=== PATIENT | female | born 1945 | race Two or more races ===

== ENCOUNTER 2016-05-14 19:24 | Inpatient (IN) | payer MEDICARE, MEDICAID ==
[~2016-05-14] VITALS: Ht 152.4 cm; Wt 59.4 kg
[~2016-05-14 19:24] MED LIST: FELO2.5T8 PO; ONDA-54 PO; SENN-133 PO; SITA25TA5 PO
[2016-05-14 19:40] VITALS: BP 102/63; PULSE 93; RESP 16; O2SAT 98
[2016-05-14] MEDS ORDERED: 0.9% Sodium Chloride 1,000 ML IV ONE (20:13)
--- NOTE | 2016-05-14 20:13 | ED.REPORT ---
HPI-GI Bleed Date of Service May 14, 2016 ED Provider: Harrison Rogers MD The patient is a 71 year old female with history of diabetes mellitus, hypertension, and lung cancer, who presents to the emergency department complaining of vague lower abdominal pain that radiates to the right lower quadrant that began 2 days ago. Yesterday the patient had several episodes of nausea and vomiting. Yesterday she also noticed difficulty having a bowel movement and when she was able to defecate she noticed small hard balls of stools. She noticed severe pain with passing the hard balls of stool. Starting yesterday evening she started having loose stools and this has continued throughout today. Her last two bowel movements today she noticed blood in the toilet and on the toilet paper. She recently finished her radiation and chemotherapy and has an upcoming appointment with her oncologist. Dr. Torres. She is not on any blood thinners. She denies any history of inflammatory bowel disease or colonic malignancy. Nursing Notes Stated Complaint: BLOODY DIARRHEA Chief Complaint: Female Abdominal Pain Nursing Notes Reviewed: Yes Allergies: Coded Allergies: No Known Allergies (Unverified , 07/29/15) Scheduled Atorvastatin (Lipitor) 20 Mg Tablet 20 MG PO HS Ca Carb & Gluc/Mag Ox & Gluc (Calcium Magnesium Caplet) 1 Each Tablet 1 TABLET PO DAILY Felodipine ER (Felodipine ER) 2.5 Mg Tab.er.24h 2.5 MG PO DAILY Ginkgo Biloba (Ginkgo Biloba) 60 Mg Capsule 60 MG PO BID Guaifenesin (Guaifenesin ER) 600 Mg Tab.er.12h 600 MG PO DAILY Sitagliptin Phos (Januvia) 25 Mg Tablet 25 MG PO DAILY Scheduled PRN Acetaminophen (Acetaminophen) 325 Mg Tablet 325-650 MG PO Q4H PRN PRN For Fever General Time Seen by Provider: 20:28 Chief Complaint Chief Complaint: Abdominal pain Hx Obtained From: Patient, Other family... Arrived By: Walk-in Onset Occurred: 2 days ago Symptom Duration: Since onset Progression Since Onset: Constant, Gradually worsening Location: : Suprapubic Quality: Painful Radiation: : RLQ Severity: Current: Moderate Severity: Maximum: Moderate Recent Healthcare: No recent doctor visit, No recent hospitalization Similar Sx Previous: No Past Medical History Past Medical History Notes: Oncologist: Dr. Kojouri Past Medical History Lung Cancer, recently diagnosed Reports: Diabetes mellitus, Hypertension Family History Noncontributory Smoking History Former Smoker Social History Other Social History: Good social support, Local resident Ambulatory Status Independent Review of Systems GI: Reports: Abdominal pain, Constipation, Diarrhea, Hematochezia, Nausea, Rectal pain, Vomiting Complete sys rev & neg: except as marked. Physical Exam Initial Vital Signs Vital Signs (First) Date Time Temp Pulse Resp B/P Pulse Ox O2 Delivery O2 Flow Rate FiO2 05/14/16 19:40 37.8 93 16 102/63 98 Room Air Initial VS: Reviewed Head / Eyes: Atraumatic, Normocephalic, PERRL Neck: Supple, Non-tender, Full range of motion Lymphatic: No lymphadenopathy Extremities: Vascular intact, Neuro intact, No swelling, No tenderness Skin: Warm, Dry, No cyanosis Neurologic: Alert, Oriented, Nonfocal Psychiatric: Mood/affect normal, Behavior normal, Normal thought content General/Constitutional: Awake, Alert, Cooperative Respiratory / Chest: Atraumatic, Breath sounds NL, Breath sounds = bilat, No respiratory distress, No rales, No rhonchi, No wheezing Cardiovascular: Heart rate NL, Regular rhythm, Heart sounds NL, No murmurs, Cap refill not delayed, Peripheral circulation NL Abdomen: Soft, No guarding, No rebound, BS normoactive, No distention, No hernia, No palpable mass, No pulsatile mass Tenderness/Guarding/Rebound: Positive: Tender diffuse Rectum / Perineum: Atraumatic Rectum / Perineum Abnl: Positive: Fissure present (no active bleeding) Rectal exam reveals bright red blood mixed with clotted blood and stool in the rectal vault. There are some non-bleeding hemorrhoids. ENT: Airway patent Mouth: Positive: Mucous membranes dry Wrist / Hand: Neurologic intact, Vascular intact Clubbed appearance of fingernails. Interpretation & Diagnostics Lab Results Interpretation Result Diagram: 05/14/16 2030 05/14/16 2030 Test 05/14/16 20:30 05/14/16 21:10 05/14/16 22:13 05/14/16 22:17 White Blood Count 15.5th/mm3 (3.8-10.1) Red Blood Count 4.36mil/mm3 (3.90-5.20) Hemoglobin 12.4g/dL (12.0-15.6) Hematocrit 36.8% (35.0-46.0) Mean Corpuscular Volume 84.4fL (81-100) Mean Corpuscular Hemoglobin 28.4pg (27.0-35.0) Mean Corpuscular Hemoglobin Concent 33.7% (32.0-37.0) Red Cell Distribution Width 14.9% (12.3-15.4) Platelet Count 139bil/L (150-400) Neutrophils (%) (Auto) 77.7% (40-74) Lymphocytes (%) (Auto) 13.4% (14-46) Monocytes (%) (Auto) 8.1% (4-12) Eosinophils (%) (Auto) 0.1% (0-5) Basophils (%) (Auto) 0.1% (0-3) Sodium Level 134mEq/L (134-144) Potassium Level 4.6mEq/L (3.5-5.2) Chloride Level 97mEq/L (97-108) Carbon Dioxide Level 23mmol/L (18-29) Blood Urea Nitrogen 14mg/dL (8-27) Creatinine 0.78mg/dL (0.57-1.00) Estimat Glomerular Filtration Rate 104mL/min (>59) Glucose Level 142mg/dL (60-99) Calcium Level 9.1mg/dL (8.5-10.1) Total Bilirubin 0.8mg/dL (0.0-1.2) Aspartate Amino Transf (AST/SGOT) 24U/L (0-50) Alanine Aminotransferase (ALT/SGPT) 20U/L (0-32) Alkaline Phosphatase 59U/L (25-165) Total Protein 7.6g/dL (6.4-8.4) Albumin 3.8g/dL (3.4-5.0) Prothrombin Time 11.0sec (8.1-12.5) Prothromb Time International Ratio 1.03ratio Hold Laws Top Tube Received (Received) Urine Color Yellow (YELLOW) Urine Appearance Clear (CLEAR,HAZY) Urine pH 6.5 (5.0-8.0) Urine Specific [place] 1.005 (1.003-1.035) Urine Protein Negativemg/dL (NEG,TRACE) Urine Glucose (UA) Negativemg/dL (NEGATIVE) Urine Ketones Negativemg/dL (NEGATIVE) Urine Occult Blood Trace (NEGATIVE) Urine Nitrite Negative (NEGATIVE) Urine Bilirubin Negative (NEGATIVE) Urine Urobilinogen Normalmg/dL (NORMAL) Urine Leukocyte Esterase Trace (NEGATIVE) Urine RBC 0-2/hpf (0-2) Urine WBC 0-5/hpf (0-5) Urine Epithelial Cells Occasional/hpf (NONE-MOD) Urine Crystals None seen (NONE SEEN) Urine Bacteria None/hpf (NONE-FEW) Urine Hyaline Casts None/lpf (NONE) Urine Granular Casts None seen (NONE SEEN) Urine Waxy Casts None seen (NONE SEEN) Urine Red Blood Cell Casts None seen (NONE SEEN) Urine White Blood Cell Casts None seen (NONE SEEN) Urine Mucus None seen (None Seen) Urine Trichomonas None seen (NONE SEEN) Urine Yeast None (NONE SEEN) Urine Culture Reflexed Indicated Hold Urine Received (Received) CT Abd / Pelvis Interpretation Left-sided colitis with wall thickening near the splenic flexure Study type: Abdominal CT IV contrast Interpretation / Wet Read by: Interpret - Radiologist, Discussed w radiologist Re-Eval/Medical Decision Med Decision/Clinical Course The patient is a 71 year old female with history of diabetes mellitus, hypertension, and lung cancer, who presents to the emergency department complaining of vague lower abdominal pain that radiates to the right lower quadrant that began 2 days ago. Yesterday the patient had several episodes of nausea and vomiting. Yesterday she also noticed difficulty having a bowel movement and when she was able to defecate she noticed small hard balls of stools. She noticed severe pain with passing the hard balls of stool. Starting yesterday evening she started having loose stools and this has continued throughout today. Her last two bowel movements today she noticed blood in the toilet and on the toilet paper. She recently finished her radiation and chemotherapy and has an upcoming appointment with her oncologist. Dr. Torres. She is not on any blood thinners. She denies any history of inflammatory bowel disease or colonic malignancy. Here in the emergency department the patient is afebrile with stable vital signs though quite tender about the lower quadrants bilaterally. Patient was treated with IV fluids, Zofran for nausea and hydromorphone for pain. She reported subjective improvement. LABS: leukocytosis 15.5, hct 33.7 slightly down from 31.9 yesterday, CMP unremarkable, coag studies WNL. ABD CT: Left-sided colitis with wall thickening near the splenic flexure. Rectal examination reveals clotted bright red blood in the rectal vault, there is an anal fissure present but this does not appear to be the source of her bleeding. Called the patient's colitis is at this time unclear. She will be admitted for further workup and management in consultation with gastroenterology. Lactate has been added and consideration for ischemic process though infectious and inflammatory etiologies remain possible as well. She was transferred in stable condition. Source of Hx: Old records, Family Re-Evaluation/Progress : Time of Eval: 21:58 Re-Evaluation/Progress Note: Discussed plan with the patient and her daughter for admission. All questions were addressed. Consultation : Referral / Consult Name: Aretha William MD Consulted With: Hospitalist Employee Service Officer: Will see patient, Agrees with eval, Agrees with plan, Accepts admit Counseled Regarding: Diagnosis, Lab results, Need for admission Discharge & Departure Impression: Primary Impression: GI bleed GI bleed type/associated pathology: unspecified gastrointestinal hemorrhage type Qualified Code: K92.2 - Gastrointestinal hemorrhage, unspecified Additional Impressions: Colitis Abdominal pain Abdominal location: lower abdomen Qualified Code: R10.30 - Lower abdominal pain, unspecified History of lung cancer Leukocytosis Leukocytosis type: unspecified Qualified Code: D72.829 - Elevated white blood cell count, unspecified Nausea Diarrhea Disposition: ADMITTED TO HOSPITAL Discharge Condition All VS Reviewed: Yes Condition: Stable Referrals: Felicitas Springer MD (PCP) Darius Torres MD [facility] Attestation Portions of this note were transcribed by Sherie Wilson. I, Dr. Rogers personally performed the history, physical exam and medical decision-making; I reviewed and confirmed the accuracy of the information in the transcribed note. Signed by: Mildred Umana, 05/14/2016 and 2320. copies to: Darius Torres MD; Felicitas Springer MD, Beck O MD May 14, 2016 20:13 Sherie Wilson May 14, 2016 20:30
[2016-05-14] MEDS ORDERED: Ondansetron 2 mg/mL 2 mL Inj IVPUSH ONE (20:15)
[2016-05-14 20:50] LABS: BASOPHILS % (AUTO) 0.1 % (0-3); EOSINOPHILS % (AUTO) 0.1 % (0-5); MONOCYTES % (AUTO) 8.1 % (4-12); Mean Corpuscular Hemoglobin 28.4 pg (27.0-35.0); Mean Corpuscular Volume 84.4 fL (81-100); NEUTROPHILS % (AUTO) 77.7 % (40-74); Platelet Count 139 bil/L (150-400)
[2016-05-14 21:37] LABS: INR 1.03 ratio
[2016-05-14] MEDS ORDERED: HYDROmorphone 0.5 mg/0.5 mL iSecure Syringe IVPUSH PRN (22:05)
[2016-05-14 22:13] VITALS: BP 122/62; PULSE 79; RESP 17; O2SAT 97
[2016-05-14] MEDS ORDERED: ATOR20TA PO (22:24)
[2016-05-14] MEDS ORDERED: CA C1TAB86 PO (22:27)
[2016-05-14] MEDS ORDERED: GINK60CA PO (22:27)
[2016-05-14] MEDS ORDERED: GUAI600T86 PO (22:27)
[2016-05-14] MEDS ORDERED: ACET325T51 PO (22:28)
[2016-05-14 23:19] LABS: APPEARANCE,URINE CLEAR (CLEAR,HAZY); COLOR,URINE YELLOW (YELLOW); OCCULT BLOOD,URINE TRACE (NEGATIVE); PH,URINE 6.5 (5.0-8.0); UROBILINOGEN,URINE NORMAL (NORMAL)
[2016-05-14 23:24] VITALS: BP 104/62; PULSE 79; RESP 15; O2SAT 97
[2016-05-14] MEDS ORDERED: Ondansetron 2 mg/mL 2 mL Inj IVPUSH PRN (23:30)
[2016-05-15] VITALS (7 sets, daily range): BP systolic 97–113; BP diastolic 50–83; PULSE 58–93; RESP 16–18; O2SAT 91–96
[2016-05-15] MEDS ORDERED: PEG/Electrolytes 4,000 mL Solution PO ONE (00:20)
[2016-05-15] MEDS ORDERED: guaiFENesin 600 mg ER12 Tablet PO PRN (00:20)
[2016-05-15] MEDS: 0.9% Sodium Chloride 1,000 ML IV SCH ×2 (00:56→15:19)
[2016-05-15] MEDS ORDERED: metroNIDAZOLE Inj 500 MG in IV Premix 1 EACH IV SCH (01:00)
[2016-05-15] MEDS ORDERED: levoFLOXacin Inj 500 MG in IV Premix 1 EACH IV SCH (01:00)
[2016-05-15] MEDS ORDERED: Sodium Chloride NAS 45 mL Spray NASAL PRN (01:55)
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
--- NOTE | 2016-05-15 06:37 | NUR ---
admit to floor from ED Suprapubic pain rated 7-8 on initial assessment. Now down to 3-4 this morning. No nausea, tolerating clear liq's. Started on Colyte prep and has drank 3500ml but is fatigued and wanting to sleep. Stools are liq dark red - sample sent to lab. Care continues.
--- NOTE | 2016-05-15 07:59 | DRSVH ---
PROCEDURE: CT ABDOMEN AND PELVIS WITH CONTRAST ([id number]) INDICATIONS: abd pain, rectal bleeding TECHNIQUE: After the administration of intravenous contrast, 5 mm thick sections acquired from the diaphragm to the symphysis. 5 mm coronal and sagittal reformats were acquired. For radiation dose reduction, the following was used: automated exposure control, adjustment of mA and/or kV according to patient siz e. COMPARISON: Outside Film, CT, CT ANGIO CHEST, 07/11/2015, 11:23. FINDINGS: Image quality: Excellent. ABDOMEN: Lung bases: Small left pleural effusion. Bibasilar scattered scarring/atelectasis. 4-5 mm partially v isualized pulmonary nodule image one series 4 in the right lung base, which is unchanged since 07/11/15 Solid organs: Liver and spleen are normal in size and enhancement. Probable hepatic cyst in the far lateral segment image 12. Gallbladder unremarkable. Biliary system is non dilated. Pancreas enhanc es normally. No adrenal nodules. Kidneys demonstrate normal size and enhancement, without hydroneph rosis. Presumed bilateral subcentimeter renal cysts although too small to characterize definitively. Peritoneum and bowel: Long segment diffuse descending and distal transverse colonic wall thickening, with adjacent fat stranding. Appendix technically not visualized although no suspicious right lower quadrant inflammatory changes. No abscess free fluid or bowel obstruction. No free air identified. Sc attered air-fluid levels in the right lower quadrant. There is a small right posterior hernia noted t ip of the right iliac crest, this contains the lateral wall of the cecum and a mild amount of fluid. No associated bowel obstruction. The rectum is partially decompressed therefore unremarkable Nodes and vessels: No retroperitoneal or mesenteric adenopathy by size criteria. Aorta and inferior vena cava are normal in size. Swirling appearance of mesenteric vessels in the right abdomen, altho ugh no definite evidence of obstruction Miscellaneous: No ventral hernias. Bilateral granulomas or nodularity seen in the anterolateral abd ominal subcutaneous fat, nonspecific and recommend clinical correlation. PELVIS: Genitourinary: Bladder wall thickness is normal. Miscellaneous: No inguinal hernias or adenopathy. Bones: Chronic fracture deformities involving the right hemipelvis. No suspicious bony lesions. No vertebral body compression fractures. IMPRESSION: Long segment left colonic wall thickening with adjacent inflammatory fat stranding, this statisticall y represents infectious/inflammatory colitis. Ischemic colitis should also be considered as a less li risa entity in the differential. Small right posterolateral pelvic hernia containing lateral wall of the cecum, and mild fluid, howeve r no associated bowel obstruction. Small left pleural effusion. Dictated by: Nadir Dahl M.D. on 05/15/2016 at 7:47 Approved by: Nadir Dahl M.D. on 05/15/2016 at 7:57
[2016-05-15] MEDS ORDERED: MAG OX PO SCH (08:30)
[2016-05-15] MEDS ORDERED: CA CARB PO SCH (08:30)
[2016-05-15] MEDS ORDERED: GLUC PO SCH (08:30)
[2016-05-15] MEDS: guaiFENesin 600 mg ER12 Tablet PO SCH ×2 (08:30→08:38)
[2016-05-15] MEDS ORDERED: [UNRECOGNIZED DRUG - OTHER] PO SCH (08:30)
[2016-05-15] MEDS ORDERED: Influenza (Adult) Vaccine 0.5 mL Syringe IM ONE (08:30)
[2016-05-15] MEDS: Insulin Human REGular 300 Unit/3 mL Inj SUBQ SCH ×3 (08:30→20:30)
[2016-05-15] MEDS: Fluticasone 0.05% 15 Spray/2 Gm 16 Gm Nasal Spray NASAL SCH ×2 (08:38→20:56)
--- NOTE | 2016-05-15 09:35 | NUR ---
Evaluation completed. Please go to "Notes" then click on "Assessments and Notes" (bottom left corner of screen). Then select appropriate discipline tab on top of screen.
--- NOTE | 2016-05-15 11:50 | NUR ---
Social Work: Initial Assessment Data & Assessment: See Initial Assessment. EMR Reviewed. Patient is a 71 y/o female that admitted on 05/14/16 with GI bleed per H&P. finish repair worker met with patient to discuss discharge plan, SW role reviewed, and initial assessment complete. Patient's insurance is Medicare and [facility] secondary. Patient's PCP is Dr. Felicitas Springer. Patient does not have VA or LTC benefits. Patient reports that she does have an Advance Directive and her daughter will bring in a copy. Patient reports that her DPOA is her daughter, joyce Quinteros. Patient is independent at baseline and has a walker and SC. Patient lives in a one story home with her daughter and there is three steps to enter. Patient does not drive. Patient has had [facility] in the past and has never been to SNF. Patient does not have any current discharge plans and states that if HH is needed she would choose [facility]. SW will continue to follow and assist patient throughout stay. Plan: Patient is likely to discharge home no needs via POV. SW will continue to follow and assist patient throughout stay. bob Jimenez LMSW, ELIZABETH Addendum: 05/15/16 at 1206 by BOB JIMENEZ Amended: Links added.
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
--- NOTE | 2016-05-15 17:57 | NUR ---
Pain Pt reports pain at a 4/10 intermittently. Denies offer of pain medication several times this shift. Bed down and locked, call light w/in reach
--- NOTE | 2016-05-15 20:58 | NUR ---
MARIA D explained and signed. Copy of MARIA D and Medicare self administered medication information given to pt.
[2016-05-16] MEDS: 0.9% Sodium Chloride 1,000 ML IV SCH ×3 (01:20→14:11)
[2016-05-16] MEDS: Insulin Human REGular 300 Unit/3 mL Inj SUBQ SCH ×4 (02:30→20:23)
[2016-05-16 03:34] LABS: BASOPHILS % (AUTO) 0.3 % (0-3); EOSINOPHILS % (AUTO) 1.8 % (0-5); MONOCYTES % (AUTO) 7.7 % (4-12); Mean Corpuscular Hemoglobin 27.7 pg (27.0-35.0); Mean Corpuscular Volume 85.9 fL (81-100); NEUTROPHILS % (AUTO) 71.6 % (40-74); Platelet Count 116 bil/L (150-400)
--- NOTE | 2016-05-16 04:06 | NUR ---
GI liq stool during night without visible blood. Reports decreasing abdominal pain at rest. No request for pain meds this shift. Stable, care ongoing.
[2016-05-16 04:42] LABS: Phosphorus 2.3 mg/dL (2.5-4.9)
[2016-05-16 05:37] VITALS: BP 85/50; PULSE 64; RESP 16; O2SAT 94
[2016-05-16 05:58] VITALS: BP 92/57; PULSE 71; RESP 16; O2SAT 95
[2016-05-16] MEDS: guaiFENesin 600 mg ER12 Tablet PO SCH (08:16)
[2016-05-16] MEDS: Fluticasone 0.05% 15 Spray/2 Gm 16 Gm Nasal Spray NASAL SCH ×2 (08:16→20:09)
[2016-05-16] MEDS ORDERED: 0.9% Sodium Chloride 1,000 ML IV ONE ×2 (10:10→10:25)
[2016-05-16 10:23] VITALS: BP 86/55; PULSE 60
--- NOTE | 2016-05-16 10:35 | NUR ---
Hypotensive Pt bp prior to shift change was 92/57 Held Amlodipine dose and rechecked at approx 1000 BP 86/55 Spoke w/ hospitalist NS Bolus ordered and running non-admin amlodipine Pt asymptomatic. Bed down and locked call light w/in reach
[2016-05-16 13:50] VITALS: BP 110/67; PULSE 61; RESP 18; O2SAT 92
--- NOTE | 2016-05-16 15:48 | PCM.PNMED ---
Subjective Date of Service May 16, 2016 Subjective Patient was seen and examined at bedside today. Patient denies any chest pain, shortness of breath, vomiting, diarrhea. Patient reports nausea, abdominal pain, dizziness, left ear pain. Exam Vital Signs Vital Sign - Last Date Time Temp Pulse Resp B/P Pulse Ox O2 Delivery O2 Flow Rate FiO2 05/16/16 13:50 36.5 61 18 110/67 92 Room Air Intake and Output 05/15/16 05/15/16 05/16/16 Cumulative From/Thru 15:00 23:00 07:00 05/14/16 19:40 - 05/16/16 06:00 Intake Total 1165 ml 1550 ml 4376 ml Output Total 1400 ml 900 ml 2300 ml Balance -235 ml 650 ml 2076 ml Intake Oral 537 ml 300 ml 1037 ml IV Total 628 ml 1250 ml 3339 ml Output Urine Total 1400 ml 1400 ml Urine/Stool Mix 900 ml 900 ml # Bowel Movements 0 7 Exam Physical Exam: GEN: Patient was awake, alert, responding appropriately to questions HEENT: PERRLA, EOMI, Neck soft supple, trachea midline, nomocephalic/atraumatic , left tympanic membrane clear, no erythema CV: +S1/S2, RRR, no murmur auscultated Respiratory: CTAB, no wheezes, rales, rhonchi GI: +bowel sounds x4, soft, compressible, TTP EXT: no c/c/e Neuro: CN II-XII grossly intact Psych: mood and affect were appropriate IVs and Medications Medications Reviewed: Medications were reviewed in detail Lab and Diagnostics Result Diagram: 05/16/16 1503 05/16/16 0309 Assessment & Plan 71-year-old female with history of lung cancer, diabetes mellitus, and hypertension who presented to the emergency department with lower abdominal pain , nausea, vomiting, and bright red blood per rectum. Bright red blood per rectum, present on admission, active - Dr. Keita of GI consulted from the ED patient was started on GoLYTELY bowel prep however patient's H&H remained stable and colonoscopy is not indicated at this time. - Serial H&H every 6 hours have been currently stable Hypotension (most likely secondary to volume depletion) -Patient currently not tolerating diet -Decreased patient back down to clear liquids -IV bolus of normal saline 1 -Continue normal saline at 100 mils per hour Gastroenteritis secondary to Escherichia coli, present on admission, acute - Patient with 2 day history of nausea, vomiting, and diarrhea - Stool PCR positive for Escherichia coli enteropathogenic Epec - Normal saline 100 mL per hour -Continue fluid and electrolyte management -Levofloxacin and Flagyl were discontinued yesterday - Original lactic acid 2.0, repeat 1.4 - Zofran when necessary for nausea and vomiting Abdominal pain, present on admission, acute - Likely secondary to above, patient with rebound tenderness on exam. Patient has a remote history of appendectomy - Pain control with IV morphine and Tylenol - GI consultation as above Positional vertigo, present on admission, acute - Patient describes room spinning upon turning head to the left or right - Differential diagnosis includes BPPV, toxicity from chemotherapy, dehydration - Physical therapy evaluation for Wan maneuver ordered Diabetes mellitus type II, present on admission, stable - Non-insulin using, patient on Januvia and diet control - Hemoglobin A1c 6.6, all recorded blood sugars since July 2015 have been less than 160. - Continue to hold Januvia patient's blood sugars have been relatively controlled, this may also be another cause for the patient's dizziness - Low-dose correctional insulin per protocol Possible changing CODE STATUS, acute - Previous POLST stating resuscitation without prolonged life support filled out 8 months ago - Upon questioning patient stated that she did not want any of it however it was approximately 1 in the morning and patient had just received narcotic medication. - She is currently stable, palliative care has consulted in the past however has not had a goals of care conversation - Palliative care consult ordered for goals of care conversation with patient and family. Chronic conditions: Nasopharyngeal mucus production - Continue Mucinex, saline and fluticasone nasal spray ordered Hypertension, well controlled - Continue felodipine 2.5 mg ER every 24 Acetaminophen for mild pain when necessary. Bowel regimen Senna and MiraLAX PRN. Zofran when necessary for nausea and vomiting. DVT prophylaxis: SCDs, pharmacologic prophylaxis contraindicated at this time due to GI bleed CODE STATUS: Patient is full code at this time Disposition: Patient is still not tolerating a diet and is in need of IV hydration as well as IV antibiotics as the patient is not tolerating anything by mouth at this time. GI Prophylaxis: Not indicated VTE Mechanical Devices: Intermittant Pneumatic CD Resuscitation Status: CPR: Attempt Resuscitation Time spent Greater than 35 minutes Amanda Luther DO May 16, 2016 15:48
--- NOTE | 2016-05-16 19:02 | NUR ---
Inpatient status effective today, MICHAEL signed.
[2016-05-16 19:56] VITALS: BP 112/71; PULSE 67; RESP 20; O2SAT 94
--- NOTE | 2016-05-16 22:55 | PCM.PNMED ---
Subjective Date of Service May 16, 2016 Subjective pt seen this morning around 9am she was ambulating in the room she stated after starting diet yesterday abdominal pain worsened diarrhe improved and non bloody Exam Vital Signs Vital Sign - Last Date Time Temp Pulse Resp B/P Pulse Ox O2 Delivery O2 Flow Rate FiO2 05/16/16 19:56 37.5 67 20 112/71 94 Room Air Intake and Output 05/15/16 05/15/16 05/16/16 Cumulative From/Thru 15:00 23:00 07:00 05/14/16 19:40 - 05/16/16 06:00 Intake Total 1165 ml 1550 ml 4376 ml Output Total 1400 ml 900 ml 2300 ml Balance -235 ml 650 ml 2076 ml Intake Oral 537 ml 300 ml 1037 ml IV Total 628 ml 1250 ml 3339 ml Output Urine Total 1400 ml 1400 ml Urine/Stool Mix 900 ml 900 ml # Bowel Movements 0 7 Exam GEN- no apparent distress HEENT- o/p clear no icterus RESP- clear bilaterally CVS-RRR abdomen- diffuse mild tenderness, no rebound or guarding, bowel sounds present Lab and Diagnostics Result Diagram: 05/16/16202005/16/16 0309 Assessment & Plan 71-year-old female with history of lung cancer, diabetes mellitus, and hypertension who presented to the emergency department with lower abdominal pain , nausea, vomiting, and bright red blood per rectum. Gastroenteritis secondary to Escherichia coli,EPEC -continue IV fluids -clear liquid diet -if symptoms improved tomorrow could advance diet GI Prophylaxis: Not indicated VTE Mechanical Devices: Intermittant Pneumatic CD Resuscitation Status: CPR: Attempt Resuscitation Megan Keita MD May 16, 2016 22:54
[2016-05-17] MEDS: 0.9% Sodium Chloride 1,000 ML IV SCH (00:14)
[2016-05-17 02:55] LABS: Mean Corpuscular Hemoglobin 27.3 pg (27.0-35.0); Mean Corpuscular Volume 86.1 fL (81-100)
[2016-05-17] MEDS: Insulin Human REGular 300 Unit/3 mL Inj SUBQ SCH ×4 (03:00→20:30)
[2016-05-17 05:08] VITALS: BP 118/68; PULSE 64; RESP 18; O2SAT 95
--- NOTE | 2016-05-17 05:13 | NUR ---
Pain Continues to c/o abdominal pain but declines offer of pain medication through night, able to sleep. Tolerating clear liquid diet without increase in nausea. Hourly rounding ongoing.
[2016-05-17] MEDS: guaiFENesin 600 mg ER12 Tablet PO SCH (08:14)
--- NOTE | 2016-05-17 08:49 | NUR ---
Palliative Care Referral Cancelled05/17/16 This policy writer typist spoke with pt.'s attending provider, Dr. Luther, about whether Palliative Care consult is needed at this time. Pt. was admitted to [facility] on 05/14/16 due to GI bleed. Pt.'s condition is steadily improving. She is currently full-code, which is appropriate given her overall physical health. Dr. Luther is in agreement that pt. does not need palliative care involved at this time as goals are clear. PEPE Vega, [facility] Palliative Business Relations Manager
[2016-05-17] MEDS: Fluticasone 0.05% 15 Spray/2 Gm 16 Gm Nasal Spray NASAL SCH ×2 (09:41→21:58)
[2016-05-17 09:43] VITALS: BP 115/64; PULSE 71
--- NOTE | 2016-05-17 12:00 | PCM.PNMED ---
Subjective Date of Service May 17, 2016 Subjective GASTROENTEROLOGY PROGRESS NOTE Patient states mild nausea, no vomiting. Continues to endorse loose stools, and reports some blood noted within toilet bowel and on toilet paper. States diffuse abdominal pain at rest and with palpation, not worsened with meals at this time. Tolerating clears well, and had crackers without discomfort. Denies fever, chills, dysphagia. Able to ambulate well without assistance. States mild dizziness. Exam Vital Signs Vital Sign - Last Date Time Temp Pulse Resp B/P Pulse Ox O2 Delivery O2 Flow Rate FiO2 05/17/16 05:08 36.9 64 18 118/68 95 Room Air Intake and Output 05/16/16 05/16/16 05/17/16 Cumulative From/Thru 15:00 23:00 07:00 05/14/16 19:40 - 05/17/16 05:08 Intake Total 2407 ml 640 ml 7423 ml Output Total 900 ml 2000 ml 5200 ml Balance 1507 ml -1360 ml 2223 ml Intake Oral 720 ml 640 ml 2397 ml IV Total 1687 ml 5026 ml Output Urine Total 900 ml 2000 ml 4300 ml Urine/Stool Mix 900 ml # Bowel Movements 1 1 9 Exam General: Alert, Oriented X3, Cooperative, No Acute Distress Eyes: EOMI, Scleral Anicteric Nose: Mucous Membr Moist/[place] Mouth: Mucous Membr Moist/[place] Chest & Lungs: Auscultation (Clear bilaterally), No adventitious breath sounds Cardiovascular: Regular Rate/Rhythm, No Murmurs/Rubs/[place] Pulses: Radial (equal and bilateral) Abdomen: Tender (Mild; diffuse, notable periumbilical), Non-distended, Benign, Soft Musculoskeletal: Normal Range of Motion Extremities: No cyanosis/clubbing/edma bilat Neurological: Grossly Neurologically Intact, Cranial Nerves 2-12 Intact, Normal Speech (without slur) Lab and Diagnostics Result Diagram: 05/17/1622405/17/16224 Assessment & Plan GASTROENTEROLOGY CONSULTATION NOTE Ms. Zaman is a pleasant 71 year old woman with history of lung cancer, DM, and HTN that presented to [facility] 05/14 with a 2-day history of abdominal pain, nausea, and vomiting, and 1-day history of hematochezia. She was admitted for evaluation and treatment of suspected lower GI bleed. GI was consulted to assist in this evaluation. CT A/P w/con 05/14: Long segment left colonic wall thickening with adjacent inflammatory fat stranding, this statistically represents infectious/ inflammatory colitis. Ischemic colitis should also be considered as a less likely entity in the differential. Small right posterolateral pelvic hernia containing lateral wall of the cecum, and mild fluid, however no associated bowel obstruction. Small left pleural effusion. Stool PCR: + E.coli EPEC Assessments - Acute lower GI bleeding; resolved - Acute infectious colitis secondary to E.coli, EPEC variant - Abdominal pain with associated nausea; improving Plan - Advance diet as tolerated; if symptoms return, reduce back to clears - Continue to monitor H/H on daily basis; stable at this time - No plans colonoscopy at this time secondary to active infection - Recommendations include advancing diet as tolerated, with avoidance of dairy and high fiber for the next 48-72 hours as symptoms are still active to allow inflammation to subside - OK to DC home when patient is deemed stable, and can tolerate po well. DC per primary team based on stability of patient - No colonoscopy recommended at DC; most recent was reported to be approx one year prior to this admission - OK to DC per GI if symptoms improve, tolerating diet, and HH remains stable Thank you for this consult. No plans for further intervention at this time. If you have any additional questions or concerns, please do not hesitate to contact us. Total time: 40 minutes GI Prophylaxis: Not indicated VTE Mechanical Devices: Intermittant Pneumatic CD Resuscitation Status: CPR: Attempt Resuscitation Attending Statement pt seen and examined agree with resident physician note after starting regular diet she started experiencing abdominal pain she reports several episodes of blood tinged diarrhea. recommend change diet to clears, cont IV fluids and advance diet when abdominal pain improves. Katie Gutierrez DO May 17, 2016 08:49 Megan Keita MD May 17, 2016 22:49
[2016-05-17 13:35] VITALS: BP 118/54; PULSE 51; RESP 18; O2SAT 100
--- NOTE | 2016-05-17 15:29 | NUR ---
GI Pt c/o abd pain - cramping. Stating 4/10 pain, states pain but tolerable - refusing pain medication. BRP/BSC as needed - mucous diarrhea, minimal amounts at a time, light pink tinge. Serial H&H - no decline. Diet advanced from clears to soft - at lunch, pt slow to eat but tolerating. No emesis. Post eating, pt napped and then after waking, stating pain 3/10, tolerable. Care continues.
--- NOTE | 2016-05-17 15:39 | PCM.PNMED ---
Subjective Date of Service May 17, 2016 Subjective Patient was seen and examined at bedside today. Patient denies any chest pain, shortness of breath, nausea, vomiting, diarrhea. Patient states that she is tolerating her liquid diet and has not had any nausea or vomiting with eating yesterday. Patient also states that her left ear pain has also improved. Exam Vital Signs Vital Sign - Last Date Time Temp Pulse Resp B/P Pulse Ox O2 Delivery O2 Flow Rate FiO2 05/17/16 13:35 36.9 51 18 118/54 100 Room Air Intake and Output 05/16/16 05/16/16 05/17/16 Cumulative From/Thru 15:00 23:00 07:00 05/14/16 19:40 - 05/17/16 05:08 Intake Total 2407 ml 640 ml 7423 ml Output Total 900 ml 2000 ml 5200 ml Balance 1507 ml -1360 ml 2223 ml Intake Oral 720 ml 640 ml 2397 ml IV Total 1687 ml 5026 ml Output Urine Total 900 ml 2000 ml 4300 ml Urine/Stool Mix 900 ml # Bowel Movements 1 1 9 Exam Physical Exam: GEN: Patient was awake, alert, responding appropriately to questions HEENT: PERRLA, EOMI, Neck soft supple, trachea midline, nomocephalic/atraumatic CV: +S1/S2, RRR, no murmur auscultated Respiratory: CTAB, no wheezes, rales, rhonchi GI: +bowel sounds x4, soft, compressible, TTP EXT: no c/c/e Neuro: CN II-XII grossly intact Psych: mood and affect were appropriate IVs and Medications Medications Reviewed: Medications were reviewed in detail Lab and Diagnostics Result Diagram: 05/17/16 1413 05/17/16 0225 Assessment & Plan 71-year-old female with history of lung cancer, diabetes mellitus, and hypertension who presented to the emergency department with lower abdominal pain , nausea, vomiting, and bright red blood per rectum. Bright red blood per rectum, present on admission, (resolved) - Dr. Keita of GI consulted from the ED patient was started on GoLYTELY bowel prep however patient's H&H remained stable and colonoscopy is not indicated at this time. - Serial H&H every 6 hours have been currently stable Hypotension (most likely secondary to volume depletion resolved after IV hydration) -Patient currently tolerating clear liquid diet advance patient to soft mechanical diet -Discontinue IV fluids Hypernatremia (mild) -Sodium 146 -IV fluids were changed to half-normal saline and then discontinued -We will continue to monitor Gastroenteritis secondary to Escherichia coli, present on admission, acute - Patient with 2 day history of nausea, vomiting, and diarrhea - Stool PCR positive for Escherichia coli enteropathogenic Epec - Discontinue Normal saline 100 mL per hour -Continue fluid and electrolyte management -Levofloxacin and Flagyl were discontinued yesterday - Original lactic acid 2.0, repeat 1.4 - Zofran when necessary for nausea and vomiting Abdominal pain, present on admission, acute - Likely secondary to above, patient with rebound tenderness on exam. Patient has a remote history of appendectomy - Pain control with IV morphine and Tylenol - GI following Positional vertigo, present on admission, (resolving) - Patient describes room spinning upon turning head to the left or right - Differential diagnosis includes BPPV, toxicity from chemotherapy, dehydration - Physical therapy evaluation for Wan maneuver ordered Diabetes mellitus type II, present on admission, stable - Non-insulin using, patient on Januvia and diet control - Hemoglobin A1c 6.6, all recorded blood sugars since July 2015 have been less than 160. - Continue to hold Januvia patient's blood sugars have been relatively controlled, this may also be another cause for the patient's dizziness - Low-dose correctional insulin per protocol Possible changing CODE STATUS, acute - Previous POLST stating resuscitation without prolonged life support filled out 8 months ago - Upon questioning patient stated that she did not want any of it however it was approximately 1 in the morning and patient had just received narcotic medication. - She is currently stable, palliative care has consulted in the past however has not had a goals of care conversation - Palliative care consult ordered for goals of care conversation with patient and family. Chronic conditions: Nasopharyngeal mucus production - Continue Mucinex, saline and fluticasone nasal spray ordered Hypertension, well controlled - Continue felodipine 2.5 mg ER every 24 Acetaminophen for mild pain when necessary. Bowel regimen Senna and MiraLAX PRN. Zofran when necessary for nausea and vomiting. DVT prophylaxis: SCDs, pharmacologic prophylaxis contraindicated at this time due to GI bleed CODE STATUS: Patient is full code at this time Disposition: Patient tolerated a liquid diet today if the patient continues to tolerate diet she will be ready for discharge home tomorrow. GI Prophylaxis: Not indicated VTE Mechanical Devices: Intermittant Pneumatic CD Resuscitation Status: CPR: Attempt Resuscitation Time spent Greater than 35 minutes Amanda Luther DO May 17, 2016 15:39
--- NOTE | 2016-05-17 16:55 | NUR ---
spiritual care: routine conversational visit, pt shared updates and care from this medical concern and her larger experience of cancer treatment and home life. pt livign with dtr, reflected on adjustments required of her as she undergoes treatment. Hopeful tone, though pt reflected on being at peace with "whatever happens." pt's yazidism luis m very important to her. blessing
[2016-05-17 21:57] VITALS: BP 124/72; PULSE 74; RESP 16; O2SAT 98
[2016-05-17] MEDS: Alum-Mag Hydrox-Simeth 30 mL Suspension PO PRN (22:02)
[2016-05-18] MEDS: Insulin Human REGular 300 Unit/3 mL Inj SUBQ SCH ×3 (02:30→14:30)
--- NOTE | 2016-05-18 04:52 | NUR ---
Cramping reports GI pain/cramping- given maalox with relief, she states flatulence. No BM this shift, continue to monitor for signs of blood. Tolerated soft diet for dinner, noted orders for clear liquid diet in chart that will be followed 05/18 breakfast unless otherwise ordered. No chest pain, SOB, or other changes. Room air, no tele. Care continues
[2016-05-18 06:42] LABS: Mean Corpuscular Hemoglobin 27.6 pg (27.0-35.0); Mean Corpuscular Volume 85.2 fL (81-100)
[2016-05-18 06:53] VITALS: BP 104/64; PULSE 64; RESP 17; O2SAT 98
[2016-05-18] MEDS: guaiFENesin 600 mg ER12 Tablet PO SCH (08:24)
[2016-05-18] MEDS: Fluticasone 0.05% 15 Spray/2 Gm 16 Gm Nasal Spray NASAL SCH (08:25)
--- NOTE | 2016-05-18 10:55 | PCM.PNMED ---
Subjective Date of Service May 18, 2016 Subjective GASTROENTEROLOGY PROGRESS NOTE Patient states improvement in abdominal pain; tolerated soft diet well thus far. States frequent BM, but blood has not been evident. Denies nausea, vomiting , fever, chills. Would like to go home today to continue rest. Exam Vital Signs Vital Sign - Last Date Time Temp Pulse Resp B/P Pulse Ox O2 Delivery O2 Flow Rate FiO2 05/18/16 06:53 36.7 64 17 104/64 98 Room Air Intake and Output 05/17/16 05/17/16 05/18/16 Cumulative From/Thru 15:00 23:00 07:00 05/14/16 19:40 - 05/18/16 00:13 Intake Total 1561 ml 200 ml 9184 ml Output Total 100 ml 5300 ml Balance 1561 ml 100 ml 3884 ml Intake Oral 200 ml 2597 ml IV Total 1561 ml 6587 ml Output Urine Total 100 ml 4400 ml Urine/Stool Mix 900 ml # Bowel Movements 9 Exam General: Alert, Oriented X3, Cooperative, No Acute Distress Eyes: EOMI, Scleral Anicteric Nose: Mucous Membr Moist/[place] Mouth: Mucous Membr Moist/[place] Chest & Lungs: Auscultation (Clear bilaterally), No adventitious breath sounds Cardiovascular: Regular Rate/Rhythm, No Murmurs/Rubs/Gallops Pulses: Radial (equal and bilateral) Abdomen: Tender (Mild; diffuse, notable periumbilical), Non-distended, Benign, Soft Musculoskeletal: Normal Range of Motion Extremities: No cyanosis/clubbing/edma bilat Neurological: Grossly Neurologically Intact, Cranial Nerves 2-12 Intact, Normal Speech (without slur) Lab and Diagnostics Result Diagram: 05/18/1661305/18/16613 Assessment & Plan GASTROENTEROLOGY CONSULTATION NOTE Ms. Zaman is a pleasant 71 year old woman with history of lung cancer, DM, and HTN that presented to [facility] 05/14 with a 2-day history of abdominal pain, nausea, and vomiting, and 1-day history of hematochezia. She was admitted for evaluation and treatment of suspected lower GI bleed. GI was consulted to assist in this evaluation. CT A/P w/con 05/14: Long segment left colonic wall thickening with adjacent inflammatory fat stranding, this statistically represents infectious/ inflammatory colitis. Ischemic colitis should also be considered as a less likely entity in the differential. Small right posterolateral pelvic hernia containing lateral wall of the cecum, and mild fluid, however no associated bowel obstruction. Small left pleural effusion. Stool PCR: + E.coli EPEC Assessments - Acute lower GI bleeding; resolved - Acute infectious colitis secondary to E.coli, EPEC variant - Abdominal pain with associated nausea; improving Plan - Advance diet as tolerated; if symptoms return, reduce back to clears. This can be a recommendation for DC instructions as well. - No plans colonoscopy at this time secondary to active infection - Recommendations include advancing diet as tolerated, with avoidance of dairy and high fiber for the next 48-72 hours as symptoms are still active to allow inflammation to subside; this can be continued at DC with DC instructions - OK to DC home when patient is deemed stable, and can tolerate po well. DC per primary team based on stability of patient - No colonoscopy recommended at DC; most recent was reported to be approx one year prior to this admission - OK to DC per GI if symptoms improve, tolerating diet, and HH remains stable Thank you for this consult. No plans for further intervention at this time. If you have any additional questions or concerns, please do not hesitate to contact us. Total time: 30 minutes GI Prophylaxis: Not indicated VTE Mechanical Devices: Intermittant Pneumatic CD Resuscitation Status: CPR: Attempt Resuscitation Attending Statement I did not see patient today as she had been discharged. However had long discussion with patient the day prior that if she was feeling better with less abdominal pain, diarrhea was improving and she was tolerating PO that she could go home Follow up as outpatient if needed. Katie Gutierrez DO May 18, 2016 10:18 Megan Keita MD May 21, 2016 15:31
--- NOTE | 2016-05-18 11:08 | PCM.DIMED ---
Discharge Instructions Date of Service May 18, 2016 Dates of Hospitalization May 14, 2016 at 23:22 Discharge Diagnosis Discharge Diagnosis Gastroenteritis secondary to Escherichia coli (EPEC) Hypotension Hypernatremia Positional vertigo Diabetes type II Medication Instructions Please do not take the following drugs for the next 3 days Mucinex Calcium carbonate Ginkgo biloba After 3 days you may resume taking these medications as prescribed by your primary care physician. It is important that he follow this instruction as her body needs rest from certain foods and harsh medications that your stomach can heal. Diet Other (for the next 3 days please avoid any dairy products and high fiber foods such as bread, hard crunchy vegetables such as broccoli. During these next 3 days please have only a soft diet if the food you eating crunches and that is not considered a soft food.) Activity No restrictions (gradually returned to your normal daily activities) Call your provider Fever or Chills, Shortness of breath, Bleeding, Chest pain, Excessive diarrhea Patient Instructions Follow-up Provider: Felicitas Springer MD Follow-up with PCP in: 1 week (if an appointment has already been made please call to schedule an appointment) Amanda Luther DO May 18, 2016 11:08
[2016-05-18] MEDS ORDERED: GUAI600T86 PO (11:13)
[2016-05-18] MEDS ORDERED: CA C1TAB86 PO (11:13)
[2016-05-18] MEDS ORDERED: GINK60CA PO (11:13)
--- NOTE | 2016-05-18 11:29 | PCM.DC.MED ---
Discharge Summary Date of Service May 18, 2016 Dates of Hospitalization Date of Hospital Admission May 14, 2016 at 23:22 Date of Discharge: May 18, 2016 Providers: Admitting Physician: Aretha William MD Primary Care Physician: Felicitas Springer MD Attending Physician: Aretha William MD Diagnosis at Time of Discharge Diagnosis at Time of Discharge Gastroenteritis secondary to Escherichia coli (EPEC) Hypotension Hypernatremia Positional vertigo Diabetes type II Consultations GI Brief History Ms. Zaman is a pleasant 71 year old woman with history of lung cancer, DM, and HTN that presented to [facility] 05/14 with a 2-day history of abdominal pain, nausea, and vomiting, and 1-day history of hematochezia. She was admitted for evaluation and treatment of suspected lower GI bleed. Hospital Course 71-year-old female with history of lung cancer, diabetes mellitus, and hypertension who presented to the emergency department with lower abdominal pain , nausea, vomiting, and bright red blood per rectum. The patient was admitted for suspected GI bleed. The patient stated that she had multiple loose stools and then also stated that she had several bloody bowel movements. GI was consulted immediately and the patient was started on GoLYTELY for a colonoscopy prep. The patient's H&H remained stable and her bleeding had slowed down and GI decided that the patient's symptoms were resolving and that a colonoscopy was not indicated at this time. GI continued to follow the patient and the patient seemed to improve. The patient was found to have an Escherichia coli infection EPEC. With this type of Escherichia coli infection the standard of care is supportive care. The patient had significant abdominal pain and could only tolerate a liquid diet for the last 2 days. The patient has been able to advance to a soft diet and has been tolerating this. The patient did have a bout of hypotension which resolved with IV fluids as the patient was not eating; however, the patient then developed hypernatremia and IV fluids were stopped and this resolved. The patient will be discharged home in stable condition on a soft diet. The patient has been told that for the next 3 days she needs to have a soft diet and avoid dairy and high-fiber foods such as bread and hard crunchy vegetables. The patient was told that if she is crunching on the food it is probably not a soft food. The patient has also been given instructions on which medications not to take (Mucinex, calcium, and ginkgo biloba) for the next 3 days. The patient may return to a soft diet and gradually increased back to a regular diet after these 3 days. The patient is being discharged home in stable condition. Hospital plan Bright red blood per rectum, present on admission, (resolved) - Dr. Keita of GI consulted from the ED patient was started on GoLYTELY bowel prep however patient's H&H remained stable and colonoscopy is not indicated at this time. - Serial H&H every 6 hours have been currently stable Hypotension (most likely secondary to volume depletion resolved after IV hydration) -Patient currently tolerating clear liquid diet advance patient to soft mechanical diet -Discontinue IV fluids Hypernatremia (mild) -Sodium 146 -IV fluids were changed to half-normal saline and then discontinued -We will continue to monitor Gastroenteritis secondary to Escherichia coli, present on admission, acute - Patient with 2 day history of nausea, vomiting, and diarrhea - Stool PCR positive for Escherichia coli enteropathogenic Epec - Discontinue Normal saline 100 mL per hour -Continue fluid and electrolyte management -Levofloxacin and Flagyl were discontinued yesterday - Original lactic acid 2.0, repeat 1.4 - Zofran when necessary for nausea and vomiting Abdominal pain, present on admission, acute - Likely secondary to above, patient with rebound tenderness on exam. Patient has a remote history of appendectomy - Pain control with IV morphine and Tylenol - GI following Positional vertigo, present on admission, (resolving) - Patient describes room spinning upon turning head to the left or right - Differential diagnosis includes BPPV, toxicity from chemotherapy, dehydration - Physical therapy evaluation for Wan maneuver ordered Diabetes mellitus type II, present on admission, stable - Non-insulin using, patient on Januvia and diet control - Hemoglobin A1c 6.6, all recorded blood sugars since July 2015 have been less than 160. - Continue to hold Januvia patient's blood sugars have been relatively controlled, this may also be another cause for the patient's dizziness - Low-dose correctional insulin per protocol Possible changing CODE STATUS, acute - Previous POLST stating resuscitation without prolonged life support filled out 8 months ago - Upon questioning patient stated that she did not want any of it however it was approximately 1 in the morning and patient had just received narcotic medication. - She is currently stable, palliative care has consulted in the past however has not had a goals of care conversation - Palliative care consult ordered for goals of care conversation with patient and family. Chronic conditions: Nasopharyngeal mucus production - Continue Mucinex, saline and fluticasone nasal spray ordered Hypertension, well controlled - Continue felodipine 2.5 mg ER every 24 Acetaminophen for mild pain when necessary. Bowel regimen Senna and MiraLAX PRN. Zofran when necessary for nausea and vomiting. DVT prophylaxis: SCDs, pharmacologic prophylaxis contraindicated at this time due to GI bleed Exam Vital Signs (Last) Date Time Temp Pulse Resp B/P Pulse Ox O2 Delivery O2 Flow Rate FiO2 05/18/16 06:53 36.7 64 17 104/64 98 Room Air Exam Physical Exam: GEN: Patient was awake, alert, responding appropriately to questions HEENT: PERRLA, EOMI, Neck soft supple, trachea midline, nomocephalic/atraumatic CV: +S1/S2, RRR, systolic murmur auscultated Respiratory: CTAB, no wheezes, rales, rhonchi GI: +bowel sounds x4, soft, compressible, mild TTP improved significantly from yesterday EXT: no c/c/e Neuro: CN II-XII grossly intact Psych: mood and affect were appropriate Test 05/14/16 21:10 05/14/16 22:13 05/14/16 22:17 05/15/16 02:49 Prothrombin Time 11.0sec (8.1-12.5) Prothromb Time International Ratio 1.03ratio Hold Laws Top Tube Received (Received) Urine Color Yellow (YELLOW) Urine Appearance Clear (CLEAR,HAZY) Urine pH 6.5 (5.0-8.0) Urine Specific [place] 1.005 (1.003-1.035) Urine Protein Negativemg/dL (NEG,TRACE) Urine Glucose (UA) Negativemg/dL (NEGATIVE) Urine Ketones Negativemg/dL (NEGATIVE) Urine Occult Blood Trace (NEGATIVE) Urine Nitrite Negative (NEGATIVE) Urine Bilirubin Negative (NEGATIVE) Urine Urobilinogen Normalmg/dL (NORMAL) Urine Leukocyte Esterase Trace (NEGATIVE) Urine RBC 0-2/hpf (0-2) Urine WBC 0-5/hpf (0-5) Urine Epithelial Cells Occasional/hpf (NONE-MOD) Urine Crystals None seen (NONE SEEN) Urine Bacteria None/hpf (NONE-FEW) Urine Hyaline Casts None/lpf (NONE) Urine Granular Casts None seen (NONE SEEN) Urine Waxy Casts None seen (NONE SEEN) Urine Red Blood Cell Casts None seen (NONE SEEN) Urine White Blood Cell Casts None seen (NONE SEEN) Urine Mucus None seen (None Seen) Urine Trichomonas None seen (NONE SEEN) Urine Yeast None (NONE SEEN) Urine Culture Reflexed Indicated Hold Urine Received (Received) Hemoglobin A1c 6.6% (4.8-5.6) Lactic Acid Level 1.4mmol/L (0.4-2.0) Test 05/16/16 03:09 05/17/16 02:25 05/18/16 06:14 Neutrophils (%) (Auto) 71.6% (40-74) Lymphocytes (%) (Auto) 18.0% (14-46) Monocytes (%) (Auto) 7.7% (4-12) Eosinophils (%) (Auto) 1.8% (0-5) Basophils (%) (Auto) 0.3% (0-3) Phosphorus Level 2.3mg/dL (2.5-4.9) Magnesium Level 2.0mg/dL (1.6-2.6) Total Bilirubin 0.4mg/dL (0.0-1.2) Aspartate Amino Transf (AST/SGOT) 15U/L (0-50) Alanine Aminotransferase (ALT/SGPT) 13U/L (0-32) Alkaline Phosphatase 63U/L (25-165) Total Protein 5.9g/dL (6.4-8.4) Albumin 3.0g/dL (3.4-5.0) White Blood Count 8.4th/mm3 (3.8-10.1) Red Blood Count 3.98mil/mm3 (3.90-5.20) Hemoglobin 11.0g/dL (12.0-15.6) Hematocrit 33.9% (35.0-46.0) Mean Corpuscular Volume 85.2fL (81-100) Mean Corpuscular Hemoglobin 27.6pg (27.0-35.0) Mean Corpuscular Hemoglobin Concent 32.4% (32.0-37.0) Red Cell Distribution Width 14.5% (12.3-15.4) Platelet Count 149bil/L (150-400) Sodium Level 145mEq/L (134-144) Potassium Level 3.7mEq/L (3.5-5.2) Chloride Level 106mEq/L (97-108) Carbon Dioxide Level 26mmol/L (18-29) Blood Urea Nitrogen 5mg/dL (8-27) Creatinine 0.77mg/dL (0.57-1.00) Estimat Glomerular Filtration Rate 106mL/min (>59) Glucose Level 122mg/dL (60-99) Calcium Level 8.6mg/dL (8.5-10.1) Discharge Medications Discharge Medications Atorvastatin (Lipitor) 20 Mg Tablet 20 MG PO HS (Reported) Ca Carb & Gluc/Mag Ox & Gluc (Calcium Magnesium Caplet) 1 Each Tablet 1 TABLET PO DAILY You may resume taking this medication in 3 days Prescribed by: ESPERANZA LYNN, DO Felodipine ER (Felodipine ER) 2.5 Mg Tab.er.24h 2.5 MG PO DAILY (Reported) Ginkgo Biloba (Ginkgo Biloba) 60 Mg Capsule 60 MG PO BID You may resume taking this medication in 3 days Prescribed by: ESPERANZA LYNN DO Guaifenesin (Guaifenesin ER) 600 Mg Tab.er.12h 600 MG PO DAILY You may resume taking this medication in 3 days Prescribed by: ESPERANZA LYNN DO Sitagliptin Phos (Januvia) 25 Mg Tablet 25 MG PO DAILY (Reported) As needed Acetaminophen (Acetaminophen) 325 Mg Tablet 325-650 MG PO Q4H PRN PRN For Fever (Reported) Additional med instructions Please do not take the following drugs for the next 3 days Mucinex Calcium carbonate Ginkgo biloba After 3 days you may resume taking these medications as prescribed by your primary care physician. It is important that he follow this instruction as her body needs rest from certain foods and harsh medications that your stomach can heal. Followup Plan Discharge Diet: Other (for the next 3 days please avoid any dairy products and high fiber foods such as bread, hard crunchy vegetables such as broccoli. During these next 3 days please have only a soft diet if the food you eating crunches and that is not considered a soft food.) Discharge Activity: No restrictions (gradually returned to your normal daily activities) Follow-up Provider: Felicitas Springer MD Follow-up with PCP in: 1 week (if an appointment has already been made please call to schedule an appointment) Time spent Greater than 35 minutes copies to: Felicitas Springer MD, Precious L DO May 18, 2016 11:28
--- NOTE | 2016-05-18 12:05 | NUR ---
Social Work Note - Readiness for d/c [employer] met with pt - pt states she is feeling better - is planning to d/c home today. She states that her daughter is coming to pick her up tonight at 6:30 pm and will help her at home. Pt denies any needs. She will follow up with her PCP in the next few days. Plan: home with family in [facility]. PATRICK Shen
[2016-05-18 13:50] VITALS: BP 102/71; PULSE 68; RESP 16; O2SAT 98
[2016-05-18] MEDS: Alum-Mag Hydrox-Simeth 30 mL Suspension PO PRN (16:16)
--- NOTE | 2016-05-18 18:35 | NUR ---
Discharge Pt discharged to home with daughter. Wheeled off unit with all personal belongings to vehicle. A&Ox3, SANDS, VSS, Pain tolerable, IV dcd intact, No scripts given, CareNotes and instructions provided on dc dx and s/sx to seek medical attention for. No unanswered questions/concerns.
== END 2016-05-18 18:37 | disposition home or self-care (01) | DRG 392 ==
LOC: SED 19:24 → OSC 23:22 → OBSVTOIN 23:22 → INTOOBSV 23:22
PROVIDERS: ADMIT Specialist; ATTEND Specialist
PROC: 3E0234Z Introduction of Serum, Toxoid and Vaccine into Muscle, Percutaneous Approach (ICD-10-PCS; principal; 2016-05-15)
DX: K52.89 Other specified noninfective gastroenteritis and colitis (principal); E87.0 Hyperosmolality and hypernatremia; E11.9 Type 2 diabetes mellitus without complications; I10 Essential (primary) hypertension; Z23 Encounter for immunization; H81.10 Benign paroxysmal vertigo, unspecified ear; Z85.118 Personal history of other malignant neoplasm of bronchus and lung

== ENCOUNTER → 2016-11-25 | Day surgery (SDC) | payer MEDICARE, MEDICAID ==
[~2016-11-25] VITALS: Ht 152.4 cm; Wt 56.8 kg
[~2016-11-25] MED LIST changes: +ACET-171 PO; +ACET325T51 PO; +ATOR20TA PO; +Atropine 0.4 mg/mL Inj IVPUSH PRN; +Bupivacaine-MPF 0.5% 30 mL Inj INFILTRATE ONE; +CA C1TAB86 PO; +CeFAZolin 2 Gm/50 mL D5W Duplex Bag IV ONE; +CeFAZolin Inj 2 GM in Dextrose 5% 50 ML IV ONE; +CeFAZolin Inj 2 GM in IV Premix 1 EACH IV ONE; +Dexamethasone 4 mg/mL Inj IVPUSH PRN; +EPHEDrine Sulfate 50 mg/mL Inj IVPUSH PRN; +GINK60CA PO; +HYDROmorphone 1 mg/mL Inj IVPUSH PRN; +HepLOK Flush 100 unit/mL 5 mL Inj IVFLUSH ONE; +Labetalol 5 mg/mL 20 mL Inj IV PRN; +Lactated Ringer's 1,000 ML IV SCH; +Lactated Ringer's 500 ML IV PRN; -ONDA-54 PO; +OXYC-530 PO; +Ondansetron 2 mg/mL 2 mL Inj IVPUSH PRN; +Ondansetron 2 mg/mL 2 mL Inj ONE; +POLY17PO6 PO; +Phenylephrine 10,000 mCg/mL Inj IVPUSH PRN; +Propofol 10,000 mCg/mL 20 mL Inj ONE; -SENN-133 PO; +fentaNYL-PF 50 mCg/mL 2 mL Inj IVPUSH PRN; +fentaNYL-PF 50 mCg/mL 2 mL Inj ONE; +hydrALAZINE 20 mg/mL Inj IVPUSH PRN
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
[2016-11-25] MEDS: Lactated Ringer's 1,000 ML IV SCH ×2 (12:59→16:27)
[2016-11-25 13:13] VITALS: BP 118/49; PULSE 54; RESP 16; O2SAT 97
--- NOTE | 2016-11-25 15:42 | PCM.DISURG ---
Surgical Discharge Instruction Date of Service Nov 25, 2016 Dates of Hospitalization Date of Hospital Admission Providers Admitting Physician: Primary Care Physician: Felicitas Springer MD Attending Physician: Carlos Hall MD Discharge Diagnosis Discharge Diagnosis Port placement Post Operative diagnosis Port placement Diet Discharge Diet: No restrictions Activity Discharge Activity-General: No restrictions Dressing and Incisional Care Dressing Care: Allow Steri Stripes to fall off, Remove outer dressing after 24 hrs Hygiene: May shower after (24 hours) Follow Up Plan Follow Up Plan No follow up appointment necessary. Follow up with PCP and oncologist as needed. King Queen MD Nov 25, 2016 15:42
--- NOTE | 2016-11-25 16:44 | PCM.SURGOP ---
Surgical Operative Report Date of Service: Nov 25, 2016 Pre Operative Diagnosis left lung cancer Post Operative Diagnosis same Procedure: tunneled left subclavian central venous catheter with Power-port; intraoperative fluoroscopy with interpretation Surgeon and Marketing Database Analyst: Surgeon: Carlos Hall MD Assistants: King Queen MD PGY-4 Indication for Procedure 71 year-old female with left lung cancer, who needs central venous access for chemotherapy. After discussion of risks and benefits, she agreed to proceed with Portacath placement. Findings: The catheter tip was positioned at the cavoatrial junction, confirmed with fluoroscopy Procedure Details After smooth induction of general anesthesia with an LMA, she was placed in the supine position with both arms tucked. The patient was prepped and draped in wide sterile fashion. A preprocedural timeout was performed according to the SCOAP checklist, and all were found to be in agreement. The patient was placed in Trendelenburg position. The left subclavian vein was accessed with a finder needle in a single pass, and the 0.035 inch wire was passed into the inferior vena cava, confirmed with fluoroscopy. A transverse incision was made on the left upper chest wall, and a subcutaneous pocket was created with electrocautery. The peel-away sheath was passed over the wire under fluoroscopic guidance. The Port-A-Cath reservoir was secured to the prepectoral tissue using interrupted 3-0 Vicryl sutures. The catheter was tunneled from the left upper chest wall incision to the venipuncture site. The catheter was passed through the peel-away sheath into the inferior vena cava. The peel-away sheath was removed, and the catheter was pulled back under fluoroscopic guidance until the tip was positioned at the cavoatrial junction. The catheter was cut to size, and secured to the port reservoir. The port aspirated and flushed easily. It was flushed with a final heparin flush, 100 units per mL, using 4 mLs. Final fluoroscopic images were obtained and saved of the catheter tip position, and the left upper chest showing no pneumothorax, no kinking of the catheter. The left upper chest wall incision was closed with running 4-0 Monocryl suture, and the venipuncture site was closed with a single interrupted 4-0 Monocryl suture. Sterile dressings were applied. At the end of the case all needle and sponge counts were correct 2. The patient was awakened from anesthesia, and taken to the recovery room in satisfactory condition, having tolerated the procedure well. Complications There were no periprocedural complications identified. Surgical Specimen Removed: No Specimen sent to Pathology: Not applicable Anesthetic Plan: MAC Grafts, Implants: Implants-See Implant Record Output, Estimated Blood Loss: 10 Blood Administration during levine: No Drains: None Catheters: None copies to: Darius Torres MD, Joshua D MD Nov 25, 2016 16:44
[2016-11-25 17:00] VITALS: BP 116/58; PULSE 60; RESP 14; O2SAT 96
--- NOTE | 2016-11-25 17:43 | DRSVH ---
PROCEDURE: X-RAY CHEST ONE VIEW, PORTABLE ([id number]) INDICATIONS: s/p left subclavian port placement TECHNIQUE: One view of the chest was acquired. COMPARISON: [facility], CT, CT CHEST ABD PELVIS W CON, 10/22/2016, 11:05. [facility], CR, XR CHEST 1VW (PORTABLE), 07/19/2016, 12:52. FINDINGS: Surgical changes and devices: Port-A-Cath has been placed from the left side. Tip is in the region of the junction of the superior vena cava and right atrium. Lungs and pleura: No pleural effusions or pneumothorax. There is increasing density at the left apex . This is thought more likely from tumor and volume loss along than of complication from Port-A-Cath placement since there is no change in the mediastinum on the right side. In addition the appearance i s similar to Site Safety Manager film of the CT scan of 10/22/16. Small left effusion cannot be excluded but is unch anged since the previous chest x-ray of 07/19/16 Mediastinum: Mediastinal contours appear normal. Heart size is normal. Bones and chest wall: No suspicious bony lesions. Overlying soft tissues appear unremarkable. IMPRESSION: Port-A-Cath placement without evidence complication on chest x-ray. Tip is in the area of the junction of the superior vena cava and right atrium. Dictated by: Kamlesh Redd M.D. on 11/25/2016 at 17:39 Approved by: Kamlesh Redd M.D. on 11/25/2016 at 17:41
[2016-11-25 17:50] VITALS: BP 120/60; PULSE 60; RESP 16; O2SAT 97
--- NOTE | 2016-11-25 18:28 | PCM.ANEP1 ---
Post Anesthesia PACU Phase 1 Assessment Vital Signs Vital Signs Date Time Temp Pulse Resp B/P Pulse Ox O2 Delivery O2 Flow Rate FiO2 11/25/16 17:50 60 16 120/60 97 Room Air 11/25/16 17:00 36.5 60 14 116/58 96 Room Air 11/25/16 13:13 36.3 54 16 118/49 97 Room Air Anesthetic Administered: MAC Level of Alertness: Awake, talking SANDS's with Equal Strength: Yes Pain: No Nausea or Vomiting: No CV Function & Hydration Stable: Yes Airway Device: Oxygen Delivery: Room Air Lungs: Normal Air Movement PACU Phase 2 Assessment Complications: No Follow up Care: No Patient Instructions Provided: N/A Jose Rivera MD Nov 25, 2016 18:28
== END | disposition home or self-care (01) ==
LOC: SAS 12:17
PROVIDERS: ATTEND Student in an Organized Health Care Education/Training Program
DX: C34.12 Malignant neoplasm of upper lobe, left bronchus or lung (principal); E11.9 Type 2 diabetes mellitus without complications; E78.00 Pure hypercholesterolemia, unspecified; I10 Essential (primary) hypertension; Z87.891 Personal history of nicotine dependence
CPT/HCPCS: 36561; 71010; 77001; C1788; J0690; J1642; J2250; J2405; J2704; J3010; J7120